=== PATIENT | female | born 1965 | race Two or more races ===

== ENCOUNTER → 2019-04-04 | Outpatient (CLI) | payer OTHER ==
[~2019-04-04] MED LIST: ATACAND16 MG PO; ATACAND4 MG; BACLOFEN10 MG; CELEBREX100 MG PO; CLONAZEPAM1 M1; COUMADIN2.5 MG; COUMADIN7.5 MG; LABETALOL HCL100 MG PO; MELOXICAM7.5 MG; METFORMIN HYDRO25 GM; MOTRIN800 MG PO; SEROQUEL25 MG; WELLBUTRIN SR150 MG; ZANTAC 7575 MG PO
== END | disposition home or self-care (01) ==
LOC: SONOGRAMA 08:57 → MAMO-SONO 09:45
DX: N18.3 Chronic kidney disease, stage 3 (moderate) (principal); R31.29 Other microscopic hematuria; R10.84 Generalized abdominal pain